=== PATIENT | male | born 1980 | race Caucasian/White ===

== ENCOUNTER 2018-01-12 13:48 | Emergency (ER) | payer BC ==
[~2018-01-12] VITALS: Ht 195.6 cm; Wt 121.0 kg
[2018-01-12] MEDS ORDERED: LIDOcaine 1.5% w/epinephrine 1:200,000 5ml ampul IJ ONE (14:10)
[2018-01-12] MEDS ORDERED: LIDOcaine 1.5% w/epinephrine 1:200,000 5ml ampul SQ ONE (14:10)
[2018-01-12] MEDS ORDERED: bacitracin 15gm ointment TP ONE (14:50)
[2018-01-12 15:07] VITALS: BP 138/98
== END 2018-01-12 15:09 | disposition home or self-care (01) ==
LOC: ER 13:49
DX: S81.812A Laceration without foreign body, left lower leg, initial encounter (principal); W26.8XXA Contact with other sharp object(s), not elsewhere classified, initial encounter; Y93.89 Activity, other specified; Y92.89 Other specified places as the place of occurrence of the external cause; Y99.8 Other external cause status
CPT/HCPCS: 12002; 99283; A6255; A6446; A6449; J3490

== ENCOUNTER 2019-01-22 14:53 | Emergency (ER) | payer OTHER | END 2019-01-22 15:01 | disposition left against medical advice (07) | LOC: ER 14:54 | DX: H57.89 Other specified disorders of eye and adnexa (principal); Z53.21 Procedure and treatment not carried out due to patient leaving prior to being seen by health care provider ==